=== PATIENT | male | born 1990 | race Caucasian/White ===

== ENCOUNTER 2017-10-05 15:20 | Emergency (ER) | payer OTHER ==
[~2017-10-05] VITALS: Ht 172.7 cm; Wt 79.4 kg
[~2017-10-05 15:20] MED LIST: ADVAIR HFA 230M12 GM IH; ALBUTEROL INHAL17 GM IH; ALBUTEROL SULF8.5 GM IH; AMOXICILLIN 50500 MG PO; AZITHROMYCIN 2250 MG PO; BACTRIM DS TAB1 EACH PO; BACTROBAN CREAM30 G1 TOP; HYDROCODONE-AP1 EAC6 PO; KEFLEX500 MG PO; NORCO 5-325 TA1 EACH PO; PREDNISONE 10 M10 M1 PO; PREDNISONE 20 M20 M1 PO; VENTOLIN17 GM INH; VISTARIL 25 MG25 M1 PO; ZPAK PO
[2017-10-05] MEDS ORDERED: IBUPROFEN 800800 M1 PO (15:48)
[2017-10-05] MEDS ORDERED: TRAMADOL 50 MG50 MG PO (15:48)
[2017-10-05] MEDS ORDERED: AMOXICILLIN 50500 MG PO (15:48)
[2017-10-05 15:58] VITALS: BP 122/78
== END 2017-10-05 15:58 | disposition home or self-care (01) ==
LOC: M.ERS 15:20
DX: K02.9 Dental caries, unspecified (principal); J45.909 Unspecified asthma, uncomplicated; F17.210 Nicotine dependence, cigarettes, uncomplicated; Z88.1 Allergy status to other antibiotic agents